=== PATIENT | female | born 1980 | race Caucasian/White ===

== ENCOUNTER 2018-10-13 09:31 | Observation (INO) ==
[2018-10-13] MEDS ORDERED: ALUM/MAG/SIMETH/LIDO VISC 1:1 30 ML BOTTLE PO STA (09:56)
[2018-10-13] MEDS ORDERED: ASPIRIN 325 MG TABLET PO STA (09:56)
[2018-10-13] MEDS ORDERED: ONDANSETRON 4 MG/2 ML VIAL IV STA (09:56)
[2018-10-13 10:39] LABS: Alanine Aminotransferase 17 U/L (13-56); Albumin 3.2 G/DL (3.4-5.0); Alkaline Phosphatase 98 U/L (45-117); Aspartate Amino Transferase 13 U/L (0-37); Bilirubin,Total < 0.39 MG/DL (0.2-1.0); Blood Urea Nitrogen 8 MG/DL (7-18); Calcium 8.6 MG/DL (8.5-10.1); Glucose 85 MG/DL (74-106); Osmolality,Calculated 277.3 MOS/KG (273-304); Total Protein 6.7 G/DL (6.4-8.3)
[2018-10-13 10:43] LABS: Basophils # 0.1 10*3/uL (0.0-0.2); Basophils % 0.6 % (0.0-0.8); Eosinophils # 0.3 10*3/uL (0.0-0.87); Eosinophils % 2.9 % (0.00-10.9); Hematocrit 40.3 VOL% (35.7-47.0); Hemoglobin 12.9 GM/DL (12.0-16.0); Immature Granulocytes % 0.4 %; Immature Granulocytes Absolute 0.04 #; Lymphocytes # 3.1 10*3/uL (1.4-4.0); Lymphocytes % 29.1 % (21.3-54.2); Mean Corpuscular Volume 94.4 FL (87-102); Mean Platelet Volume 11.6 FL (9.6-12.0); Monocytes % 8.6 % (1.7-12.7); Neutrophils % 58.4 % (38.7-73.9); Platelet Count 263 T/CUMM (130-400); Red Blood Count 4.27 MC/CUMM (3.8-5.5); Red Cell Distribution Width 12.7 % (9.3-17.3); White Blood Count 10.6 T/CUMM (4-12)
[2018-10-13 10:55] LABS: INR 0.9; PT Patient Result 9.7 SECS
[2018-10-13 10:55] LABS: Apearance,Urine CLEAR (Clear); Bacteria,Urine Occasional /HPF (Few); Bilirubin,Urine Negative (Negative); Blood, Urine Negative (Negative); Glucose,Urine (UA) Negative (Negative); Hyaline Casts,Urine 3 /LPF (0-3); Ketones,Urine Negative (Negative); Mucus,Urine Many /LPF (Occasional); Nitrite,Urine Negative (Negative); Protein,Urine Negative; RBC,Urine 1 /HPF (0-4); Squamous Epithelial Cell,Urine Occasional /HPF (0-10); Urine Color Yellow (Yellow); Urine Specific Gravity 1.023 (1.001-1.035); Urine Urobilinogen < 2.0 EU/DL (0.2-1.0); WBC,Urine <1 /HPF (0-6)
[2018-10-13 10:58] LABS: Barbiturates Screen,Urine Negative (Negative); Benzodiazepines Screen,Urine Negative (Negative); Cannabinoid Screen,Urine Negative (Negative); Opiate Screen,Urine Negative (Negative); Phencyclidine Screen,Urine Negative (Negative)
[2018-10-13] MEDS ORDERED: LACTULOSE 20 GM/30 ML UDCUP PO PRN (13:06)
[2018-10-13] MEDS ORDERED: NICOTINE 21 MG/24 HR PATCH TRANSDERM PRN (13:06)
[2018-10-13] MEDS ORDERED: ACETAMINOPHEN 325 MG TABLET PO PRN (13:06)
[2018-10-13] MEDS ORDERED: ONDANSETRON 4 MG/2 ML VIAL IV PRN (13:06)
[2018-10-13 13:41] LABS: Risk Ratio 3.79; Thyroid Stimulating Hormone 1.31 uIU/ml (0.358-3.74)
[2018-10-13] MEDS: ENOXAPARIN 40 MG/0.4 ML SYRINGE SUBCUT SCH (14:22)
[2018-10-13] MEDS ORDERED: FLUoxetine 20 MG CAPSULE PO SCH (21:00)
[2018-10-13] MEDS ORDERED: traZODone 50 MG TABLET PO SCH (21:00)
[2018-10-13] MEDS ORDERED: GABAPENTIN 100 MG CAPSULE PO SCH (21:00)
[2018-10-13] MEDS ORDERED: PROPRANOLOL 20 MG TABLET PO SCH (21:00)
[2018-10-14 04:46] LABS: Basophils # 0.1 10*3/uL (0.0-0.2); Basophils % 0.8 % (0.0-0.8); Eosinophils # 0.3 10*3/uL (0.0-0.87); Eosinophils % 3.7 % (0.00-10.9); Hemoglobin 12.2 GM/DL (12.0-16.0); Immature Granulocytes % 0.3 %; Immature Granulocytes Absolute 0.02 #; Lymphocytes # 3.1 10*3/uL (1.4-4.0); Lymphocytes % 42.4 % (21.3-54.2); Mean Corpuscular HGB Conc 32.1 GM/DL (32-36); Mean Corpuscular Volume 94.5 FL (87-102); Mean Platelet Volume 11.5 FL (9.6-12.0); Neutrophils % 45.8 % (38.7-73.9); Platelet Count 235 T/CUMM (130-400); Red Blood Count 4.02 MC/CUMM (3.8-5.5); Red Cell Distribution Width 12.5 % (9.3-17.3); White Blood Count 7.3 T/CUMM (4-12)
[2018-10-14 05:13] LABS: Calcium 8.5 MG/DL (8.5-10.1); Osmolality,Calculated 279.3 MOS/KG (273-304)
[2018-10-14] MEDS ORDERED: PANTOPRAZOLE 40 MG TABLET PO SCH (09:00)
[2018-10-14] MEDS ORDERED: ASPIRIN CHEW 81 MG TABLET PO SCH (09:00)
[2018-10-14] MEDS ORDERED: KETOROLAC 30 MG/1 ML VIAL IV SCH (12:30)
[2018-10-14 12:39] VITALS: BP 93/57
[2018-10-14] MEDS: ENOXAPARIN 40 MG/0.4 ML SYRINGE SUBCUT SCH (12:59)
[2018-10-15] MEDS ORDERED: KETOROLAC 10 MG TABLET PO SCH (18:00)
== END 2018-10-14 14:05 | disposition home or self-care (01) ==
LOC: EDUNIT# → EDBD → N.ED 09:31 → N.EDINP 09:31 → N.4E 15:06
PROVIDERS: ADMIT Internal Medicine; ATTEND Internal Medicine